=== PATIENT | female | born 1945 | race Caucasian/White ===

== ENCOUNTER 2018-10-07 07:35 | Emergency (ER) | payer BC ==
[~2018-10-07] VITALS: Ht 172.7 cm; Wt 122.7 kg
[2018-10-07] MEDS ORDERED: VITA-182 PO (07:45)
[2018-10-07] MEDS ORDERED: LEVO50TA5 PO (07:45)
[2018-10-07] MEDS ORDERED: IRON27TA2 PO (07:45)
[2018-10-07] MEDS ORDERED: HYDR12.55 PO (07:45)
[2018-10-07] MEDS ORDERED: VITAE20CA PO (07:45)
[2018-10-07] MEDS ORDERED: VITA500C24 PO (07:45)
[2018-10-07] MEDS ORDERED: LOSA50TA5 PO (07:45)
[2018-10-07] MEDS ORDERED: SIMV40TA2 PO (07:45)
[2018-10-07] MEDS ORDERED: WOMETAB2 PO (07:45)
[2018-10-07] MEDS ORDERED: ASPI1TAB PO (07:46)
[2018-10-07] MEDS ORDERED: LIDOCAINE 5% (LIDODERM) PATCH TD ONE (08:00)
[2018-10-07] MEDS ORDERED: NORCO, ANEXSIA 5/325MG TABLET (HYDROcodone/ACETAMINOPHEN) PO ONE (08:00)
--- NOTE | 2018-10-07 08:22 | REP ---
AP pelvis single view: Mineralization is normal. The sacroiliac articulations are unremarkable. There is joint space narrowing compatible with osteoarthritis of the right hip. The left hip is unremarkable. There are no calcifications. Impression: No fracture. Right hip osteoarthritis. Otherwise, negative AP pelvis. Right hip two views: There is joint space narrowing and cortical eburnation compatible with osteoarthritis. There is no femoral head deformity. Mineralization is normal. Impression: Osteoarthritis, otherwise negative right hip. Electronically Signed by Isaiah Santillan MD 10/07/2018 08:14 A
[2018-10-07 09:14] LABS: BASO % 0.3 % (0.0-1.0); EOS % 0.4 % (0.0-3.0); HEMATOCRIT 39.7 % (36.0-47.0); LYMPH # 2.2 10^3/uL (1.5-4.5); LYMPH % 20.8 % (24.0-44.0); MEAN CORPUSCULAR HEMOGLOBIN 28.4 pg (27.0-33.0); MEAN CORPUSCULAR HGB CONC 32.7 g/dl (32.0-36.5); MEAN CORPUSCULAR VOLUME 86.9 fl (80.0-96.0); MONO # 0.8 10^3/uL (0.0-0.8); MONO % 7.4 % (0.0-5.0); NEUTROPHILS # 7.6 10^3/uL (1.8-7.7); NEUTROPHILS % 70.8 % (36.0-66.0); PLATELET COUNT, AUTOMATED 364 10^3/uL (150-450); RED BLOOD COUNT 4.57 10^6/uL (4.00-5.40); WHITE BLOOD COUNT 10.7 10^3/uL (4.0-10.0)
[2018-10-07 09:23] LABS: BLOOD UREA NITROGEN 12 MG/DL (7-18); C REACTIVE PROTEIN QUANTITATIV 0.83 MG/DL (0.00-0.30); CALCIUM LEVEL 9.3 MG/DL (8.8-10.2); CARBON DIOXIDE LEVEL 29 MEQ/L (21-32); CHLORIDE LEVEL 101 MEQ/L (98-107); CREATININE FOR GFR 0.62 MG/DL (0.55-1.30); GLOMERULAR FILTRATION RATE > 60.0 (>39); GLUCOSE, FASTING 128 MG/DL (70-100); POTASSIUM SERUM 3.7 MEQ/L (3.5-5.1); SODIUM LEVEL 137 MEQ/L (136-145)
[2018-10-07 09:50] LABS: ERYTHROCYTE SEDIMENTATION RATE 40 mm/hr (0-30)
[2018-10-07] MEDS ORDERED: KETOROLAC 30 MG/ML VIAL (J1885) IV ONE (10:30)
[2018-10-07] MEDS ORDERED: MORPHINE 2 MG/ML 1ML SYRINGE (J2270) IV ONE (12:45)
[2018-10-07] MEDS ORDERED: NORCOTAB PO (12:53)
[2018-10-07 13:48] VITALS: BP 160/81
--- NOTE | 2018-10-07 14:10 | REP ---
CT ABDOMEN AND PELVIS WITHOUT CONTRAST: CT abdomen and pelvis are performed without oral or IV contrast. Sagittal and coronal reconstruction images are performed. Visualized lung bases demonstrate no infiltrate. The liver is grossly unremarkable. Small gallstones are seen in the gallbladder without evidence of gallbladder wall edema or biliary dilatation. The spleen, adrenals, and pancreas are grossly unremarkable. Subcentimeter hypodensities in each kidney probably represent tiny cysts. There is no evidence of hydroureterosis. There is no evidence of appendicitis. There is no pelvic mass. The urinary bladder is mildly distended with no intraluminal calculus. There are degenerative changes of the spine. IMPRESSION: Subcentimeter gallstones in the gallbladder. No gallbladder wall edema or biliary dilatation. Scattered diverticula of the sigmoid and left colon without evidence of acute diverticulitis. No appendicitis. No renal or ureteral calculus and no hydroureteronephrosis. Subcentimeter hypodensities are seen on both kidneys likely representing tiny cysts. Electronically Signed by Isaiah Robins MD 10/07/2018 11:42 P
[2018-10-07] MEDS ORDERED: **NOTE PATIENT COMMENT** MISC XX SCH (21:00)
== END 2018-10-07 13:53 | disposition home or self-care (01) ==
LOC: M ED 07:35
DX: M25.551 Pain in right hip (principal); M16.11 Unilateral primary osteoarthritis, right hip; I10 Essential (primary) hypertension; E07.9 Disorder of thyroid, unspecified; F17.200 Nicotine dependence, unspecified, uncomplicated; Z79.899 Other long term (current) drug therapy; Z79.82 Long term (current) use of aspirin
CPT/HCPCS: 36415; 73502; 74176; 80048; 81001; 85025; 85652; 86140; 96374; 96375; 99284; J1885; J2270

== ENCOUNTER 2019-05-23 13:30 | Emergency (ER) | payer BC ==
[~2019-05-23] VITALS: Ht 177.8 cm; Wt 122.0 kg
[~2019-05-23 13:30] MED LIST: ASPI81TA26 PO; HYDR-3715 PO; HYDR12.55 PO; IRON27TA2 PO; LEVO50TA5 PO; LOSA50TA5 PO; SIMV40TA2 PO; VITA-182 PO; VITA500C24 PO; VITAE20CA PO; WOMETAB2 PO
[2019-05-23] MEDS ORDERED: PROPOFOL 1,000 MG/100 ML VIAL As Ordered ONE (13:53)
[2019-05-23] MEDS ORDERED: PROPOFOL 1,000 MG in IV 1 EA IV SCH (14:00)
[2019-05-23] MEDS: niCARdipine IV 40 MG in IV 1 EA IV SCH ×2 (14:07→14:53)
[2019-05-23] MEDS ORDERED: MANNITOL 25% 12.5 GM/50 ML VIAL (J2150) As Ordered ONE (14:12)
[2019-05-23 14:14] LABS: INR 1.02; PROTHROMBIN TIME 13.1 SECONDS (11.8-14.0)
[2019-05-23 14:15] LABS: PARTIAL THROMBOPLASTIN TIME 27.9 SECONDS (25.0-38.4)
[2019-05-23] MEDS ORDERED: MANNITOL 20% 100GM/500 ML BAG IV ONE (14:15)
[2019-05-23 14:23] LABS: BASO % 0.4 % (0.0-1.0); EOS # 0.1 10^3/uL (0.0-0.5); HEMATOCRIT 38.3 % (36.0-47.0); HEMOGLOBIN 12.6 g/dl (12.0-15.5); LYMPH # 3.5 10^3/uL (1.5-5.0); LYMPH % 36.2 % (24.0-44.0); MEAN CORPUSCULAR HGB CONC 32.9 g/dl (32.0-36.5); MEAN CORPUSCULAR VOLUME 91.2 fl (80.0-96.0); MONO # 0.8 10^3/uL (0.0-0.8); MONO % 8.1 % (0.0-5.0); NEUTROPHILS # 5.3 10^3/uL (1.5-8.5); NEUTROPHILS % 54.2 % (36.0-66.0); PLATELET COUNT, AUTOMATED 321 10^3/uL (150-450); WHITE BLOOD COUNT 9.8 10^3/uL (4.0-10.0)
[2019-05-23] MEDS ORDERED: ETOMIDATE INJ 20MG/10ML VIAL IV STA (14:23)
[2019-05-23] MEDS ORDERED: SUCCINYLCHOLINE INJ 200 MG/10 ML VIAL (J0330) IV STA (14:23)
[2019-05-23 14:33] LABS: BLOOD UREA NITROGEN 18 MG/DL (7-18); CALCIUM LEVEL 9.7 MG/DL (8.8-10.2); CARBON DIOXIDE LEVEL 27 MEQ/L (21-32); CHLORIDE LEVEL 102 MEQ/L (98-107); CK-MB VALUE MASS 1.4 NG/ML (<3.6); CPK CREATINE PHOSPHOKINASE 114 U/L (26-192); GLOMERULAR FILTRATION RATE > 60.0 (>39); GLUCOSE, FASTING 112 MG/DL (70-100); MB/CK RELATIVE INDEX 1.23 (< OR =4); POTASSIUM SERUM 3.8 MEQ/L (3.5-5.1); SODIUM LEVEL 139 MEQ/L (136-145); TROPONIN I < 0.02 NG/ML (< 0.10)
--- NOTE | 2019-05-23 14:45 | REP ---
CT brain without contrast: History: Unresponsiveness. No comparison study. CT findings: Digital preliminary piercer radiograph is unremarkable. The bony calvarium is intact. Visualized paranasal sinuses are clear. No intraorbital abnormality is seen. There is extensive diffuse intraventricular hemorrhage filling and dilating the third ventricle and partially filling the lateral and fourth ventricles. Subarachnoid hemorrhage is visible in the posterior fossa at the level of the foramen magnum and under the leaves of the tentorium although this is subtle. The basilar cisterns above the tentorium are effaced. There is ventriculomegaly. There is mild sulcal effacement above the tentorium. No midline shift is seen. No infarct is appreciated. Impression: Acute intracranial hemorrhage, most of which is throughout the ventricular system. There is some subarachnoid hemorrhage in the posterior fossa and at the craniocervical junction. Ruptured hamm aneurysm in the posterior fossa versus other vascular lesion with hemorrhage. This report was provided by telephone to the referring provider at 1:50 p.m. on this date. Electronically Signed by Tae Walton MD 05/23/2019 03:33 P
--- NOTE | 2019-05-23 14:49 | REP ---
PORTABLE CHEST: AP supine portable view of the chest is performed. The vasculature is mildly engorged, which may be due to AP supine positioning. The heart appears enlarged. There is calcification of the thoracic aorta. There is an endotracheal tube with the tip approximately 4 cm above the robe. Electronically Signed by Isaiah Robins MD 05/23/2019 05:00 P
[2019-05-23 14:55] VITALS: BP 148/70
--- NOTE | 2019-05-23 15:01 | REP ---
CT STUDY OF THE CERVICAL SPINE WITHOUT CONTRAST: HISTORY: Trauma. TECHNIQUE: Helical scanning is acquired and overlapping 2 mm high resolution axial images were generated and reviewed at bone and soft tissue window settings. Coronal and sagittal multiplanar re-formations images are generated. CT FINDINGS: An orotracheal tube is noted in place. There is some motion artifact and second acquisition was performed. There is no evidence of cervical spine element fracture. No skull base fracture is seen. Cervical vertebral body heights are preserved. Alignment is normal. Facet joints are normally aligned bilaterally at each cervical level on multiplanar re-formations images. There is no evidence of intraspinal or paraspinal hematoma. No extra vertebral abnormality is seen. There is slight reversal of the normal cervical lordosis. Degenerative disc changes are noted in the lumbar spine. No extra spinal masses seen. No hematoma is noted. IMPRESSION: Degenerative disc disease. Endotracheal tube in place. Some motion artifact. Otherwise negative CT study of the cervical spine without contrast. No fracture seen. Electronically Signed by Tae Walton MD 05/23/2019 03:33 P
--- NOTE | 2019-05-23 20:11 | ECGEPIP ---
[facility] - ED Test Date: 2019-05-23 Pat Name: GENNY CHAPPELL Department: Room: - Gender: Female Instrument Man: [id number] : 1945 Requested By: JOHN Roland Order Number: [id number] Reading MD: Woodrow Moraes Measurements Intervals [place] Rate: 80 P: 65 UT: 168 QRS: 66 QRSD: 98 T: 50 QT: 367 QTc: 426 Interpretive Statements SINUS RHYTHM WITH MARKED SINUS ARRHYTHMIA NSTTW ABNORMALITIES NO PRIORS FOR COMPARISON Electronically Signed on 05-23-2019 20:11:00 EDT by Woodrow Moraes
== END 2019-05-23 16:32 | disposition short-term general hospital (02) ==
LOC: EDBD 13:30 → M ED 13:30
DX: I62.9 Nontraumatic intracranial hemorrhage, unspecified (principal); I10 Essential (primary) hypertension; E07.9 Disorder of thyroid, unspecified; Z79.899 Other long term (current) drug therapy; Z79.82 Long term (current) use of aspirin; Z79.890 Hormone replacement therapy
CPT/HCPCS: 31500; 36600; 51702; 70450; 71045; 72125; 80048; 82550; 82553; 82803; 84484; 85025; 85610; 85730; 86850; 86900; 86901; 93005; 93041; 96374; 96375; 99291; J0330